=== PATIENT | female | born 1960 | race Hispanic/Latino ===

== ENCOUNTER 2017-06-25 08:54 | Emergency (ER) | payer BC, SELFPAY ==
[2017-06-25 09:52] LABS: Urine Blood TRACE (NEG); Urine Glucose TRACE (NEG); Urine Protein 1+ (NEG)
[2017-06-25 10:02] LABS: Absolute Monocytes 0.4 K/uL (0.1-1.3); Absolute Neutrophil 2.1 K/uL (1.8-8.0); Basophils % 0.3 % (0-1.3); Hematocrit 40.1 % (36.0-45.0); Lymphocytes % 29.5 % (15.3-44.8); MCH 27.9 pg (27.0-35.0); MCV 83.7 fL (80-100); MPV 8.7 fL (7.6-11.3); Monocytes % 11.1 % (3.3-12.3); RBC Red Blood Cell Count 4.79 M/uL (3.86-4.86)
[2017-06-25] MEDS ORDERED: NA CHLORIDE 0.9% 1,000 ML ONE (10:09)
[2017-06-25] MEDS ORDERED: ONDANSETRON 4 MG/2 ML VIAL ONE (10:09)
[2017-06-25 10:10] LABS: Glomerular Filtration Rate > 60 mL/min (>60)
[2017-06-25 10:11] LABS: Potassium 3.4 mEq/L (3.6-5.0)
[2017-06-25 10:17] LABS: Albumin 3.9 g/dL (3.2-5.5); Bilirubin Direct 0.1 mg/dL (0-0.2); Bilirubin Total 0.5 mg/dL (0.3-1.2); Protein, Total 7.4 g/dL (6.0-8.3)
--- NOTE | 2017-06-25 10:31 | RAD REPORT ---
EXAM DESCRIPTION: RAD - Chest Pa And Lat (2 Views) - 06/25/2017 10:03 am CLINICAL HISTORY: Abdominal pain, flank pain COMPARISON: August 2016 TECHNIQUE: PA and lateral views of the chest were obtained. FINDINGS: The lungs are clear. Lung markings are accentuated slightly by shallow inspiration. No tr ue change from comparison. Trachea is midline. Heart size is normal and central vasculature is within normal limits. No pleural effusion or pneumothorax seen. No acute bony finding noted. No aortic a bnormality. IMPRESSION: No acute cardiopulmonary process. No significant interval change.
[2017-06-25 10:35] LABS: Urine Bacteria <20 /HPF (<20); Urine Culture Reflex Order REFLEXED; Urine RBC <5 /HPF (NONE SEEN)
--- NOTE | 2017-06-25 11:06 | RAD REPORT ---
EXAM DESCRIPTION: CT - Abdomen Pelvis W Contrast - 06/25/2017 10:46 am CLINICAL HISTORY: Abdominal pain, right flank pain, decreasing urine output COMPARISON: CT imaging May 2015 TECHNIQUE: Biphasic, helical CT imaging of the abdomen and pelvis was performed following 100 ml non -ionic IV contrast. Oral contrast was given. All CT scans are performed using dose optimization technique as appropriate and may include automated exposure control or mA/KV adjustment according to patient size. FINDINGS: No suspicious findings in the lung bases. The liver, spleen, and pancreas show no suspicious findings. Cholecystectomy clips are present. No bi liary tree dilatation. Symmetric renal function is seen with no hydronephrosis or suspicious renal mass. No pyelonephritis o r acute renal parenchymal process seen. Mostly contracted urinary bladder shows no suspicious finding s. No uterine or ovarian suspicious finding. No dilated bowel loops or bowel wall thickening. The appendix is normal. No free air, free fluid or i nflammatory stranding. No hernia, mass or bulky lymphadenopathy. No adrenal abnormality. No suspicious bony findings. IMPRESSION: Contrast enhanced CT abdomen and pelvis showing no significant or suspicious finding. N o significant change from prior imaging.
--- NOTE | 2017-06-25 12:46 | EDPHYS ---
Physician Documentation [facility] Name: Kieran Dumont Age: 57 yrs Sex: Female : 1960 Arrival Date: 06/25/2017 Time: 08:58 Bed 17 Private MD: ED Physician Oscar Walton HPI: 06/25 10:30 This 57 yrs old Female presents to ER via Ambulatory with complaints of Right pm1 flank pain and nasal congestion. 10:30 The symptoms are located in the right low back. Onset: The symptoms/episode pm1 began/occurred 5 day(s) ago. The pain does not radiate. Associated signs and symptoms: Pertinent positives: dysuria, Pertinent negatives: abdominal pain, chest pain, shortness of breath. Modifying factors: The patient symptoms are alleviated by nothing, the patient symptoms are aggravated by nothing. The patient has experienced similar episodes in the past, a few times. The patient has not recently seen a physician. Patient with 5 days of right flank pain and burning with urination. Patient with no shortness of breath but complains of nasal congestion. Historical: - Allergies: 09:08 tramadol; ss 09:08 HYDROCODONE; ss 09:08 Ciprofloxacin; ss - PMHx: 09:08 Hypertension; Depression; CVA; ss - PSHx: 09:08 Cholecystectomy; Hysterectomy; ss - Immunization history:: Adult Immunizations up to date. - Social history:: Smoking status: Patient/guardian denies using tobacco. ROS: 10:30 Constitutional: Negative for fever, chills, and weight loss, Eyes: Negative for injury, pm1 pain, redness, and discharge, Neck: Negative for injury, pain, and swelling, Cardiovascular: Negative for chest pain, palpitations, and edema. 10:30 Respiratory: Negative for shortness of breath, cough, wheezing, and pleuritic chest pain, Abdomen/GI: Negative for abdominal pain, nausea, vomiting, diarrhea, and constipation. 10:30 MS/Extremity: Negative for injury and deformity, Skin: Negative for injury, rash, and discoloration, Neuro: Negative for headache, weakness, numbness, tingling, and seizure. 10:30 ENT: Positive for sinus congestion, sinus pain, Negative for ear pain, sore throat. 10:30 Back: Positive for flank pain, on the right. 10:30 : Positive for burning with urination. Exam: 10:30 Constitutional: This is a well developed, well nourished patient who is awake, alert, pm1 and in no acute distress. Head/Face: Normocephalic, atraumatic. Eyes: Pupils equal round and reactive to light, extra-ocular motions intact. Lids and lashes normal. Conjunctiva and sclera are non-icteric and not injected. Cornea within normal limits. Periorbital areas with no swelling, redness, or edema. ENT: Nares patent. No nasal discharge, no septal abnormalities noted. Tympanic membranes are normal and external auditory canals are clear. Oropharynx with no redness, swelling, or masses, exudates, or evidence of obstruction, uvula midline. Mucous membranes moist. Neck: Trachea midline, no thyromegaly or masses palpated, and no cervical lymphadenopathy. Supple, full range of motion without nuchal rigidity, or vertebral point tenderness. No Meningismus. Chest/axilla: Normal chest wall appearance and motion. Nontender with no deformity. No lesions are appreciated. Cardiovascular: Regular rate and rhythm with a normal S1 and S2. No gallops, murmurs, or rubs. Normal PMI, no JVD. No pulse deficits. Respiratory: Lungs have equal breath sounds bilaterally, clear to auscultation and percussion. No rales, rhonchi or wheezes noted. No increased work of breathing, no retractions or nasal flaring. Abdomen/GI: Soft, non-tender, with normal bowel sounds. No distension or tympany. No guarding or rebound. No evidence of tenderness throughout. 10:30 Back: normal spinal alignment noted, vertebral tenderness, is not appreciated. 10:30 Neuro: Orientation: is normal, Mentation: is normal, Motor: is normal, moves all fours, pm1 Sensation: is normal, no obvious gross deficits. Vital Signs: 09:08 BP 110 / 57; Pulse 118; Resp 22; Pulse Ox 96% on R/A; Weight 104.33 kg; Height 5 ft. 7 ss in. (170.18 cm); Pain 5/10; 09:08 Temp 99.0(TE); ss 10:56 BP 111 / 69; Pulse 92; Resp 18; Pulse Ox 97% on 2 lpm NC; hj 09:08 Body Mass Index 36.02 (104.33 kg, 170.18 cm) ss MDM: 09:29 Patient medically screened. pm1 12:44 Data reviewed: vital signs. Data interpreted: Pulse oximetry: on room air is 97 %. pm1 Interpretation: normal. Counseling: I had a detailed discussion with the patient and/or guardian regarding: the historical points, exam findings, and any diagnostic results supporting the discharge/admit diagnosis, lab results, radiology results, the need for outpatient follow up, to return to the emergency department if symptoms worsen or persist or if there are any questions or concerns that arise at home. 06/25 09:39 Order name: Creatinine for Radiology; Complete Time: 11:14 pm06/25 09:39 Order name: Basic Metabolic Panel; Complete Time: 11:14 pm06/25 09:39 Order name: CBC with Diff; Complete Time: 11:14 pm06/25 09:39 Order name: Hepatic Function; Complete Time: 11:14 pm06/25 09:39 Order name: Lipase; Complete Time: 11:14 pm06/25 09:39 Order name: Urine Microscopic Only; Complete Time: 11:14 pm06/25 09:39 Order name: Chest Pa And Lat (2 Views) XRAY; Complete Time: 11:14 pm06/25 09:39 Order name: CT Abd/Pelvis - W/Contrast; Complete Time: 11:14 pm06/25 09:39 Order name: Urine Dipstick--Ancillary (enter results); Complete Time: 09:56 ag 06/25 09:39 Order name: Urine --Ancillary (enter results); Complete Time: 09:56 ag 06/25 10:37 Order name: Urine Culture EDMS 06/25 09:39 Order name: Urine Test (obtain specimen); Complete Time: 09:41 pm06/25 09:39 Order name: IV Saline Lock; Complete Time: 09:54 pm06/25 09:39 Order name: Labs collected and sent; Complete Time: 09:54 pm06/25 09:39 Order name: Urine Dipstick-Ancillary (obtain specimen); Complete Time: 09:41 pm1 Administered Medications: 09:39 Drug: NS 0.9% 1000 ml Route: IV; Rate: 1000 ml; Site: right antecubital; hj 13:13 Follow up: IV Status: Completed infusion hj 09:39 Drug: Zofran 4 mg Route: IVP; Site: right antecubital; hj 11:00 Follow up: Response: No adverse reaction; Nausea is decreased hj 12:26 Drug: Rocephin 1 grams Route: IV; Rate: calculated rate; Site: right antecubital; hj 13:13 Follow up: IV Status: Completed infusion Disposition: 13:29 Co-signature as Attending Physician, Oscar Walton MD I agree with the assessment and kdr plan of care. Disposition: 06/25/17 12:45 Discharged to Home. Impression: Urinary tract infection, site not specified, Acute upper respiratory infection, unspecified. - Condition is Stable. - Discharge Instructions: Upper Respiratory Infection, Adult, Urinary Tract Infection. - Prescriptions for Bactrim DS 800- 160 mg Oral Tablet - take 1 tablet by ORAL route every 12 hours for 10 days; 20 tablet. Pyridium 200 mg Oral Tablet - take 1 tablet by ORAL route every 8 hours for 3 days; 9 tablet. - Medication Reconciliation Form, Thank You Letter, Antibiotic Education form. - Follow up: Emergency Department; When: As needed; Reason: Worsening of condition. Follow up: Private Physician; When: 2 - 3 days; Reason: Recheck today's complaints, Continuance of care, Re-evaluation by your physician. - Problem is new. - Symptoms have improved. Signatures: Dispatcher [employer] Oscar Rodriguez MD MD kdr Smirch, Shelby, RN RN Gerber Espinoza RN RN hj Marinas, Patrick, TRACE FAST FOOD SHIFT SUPERVISOR pm1
--- NOTE | 2017-06-25 12:46 | ER ---
Nurse's Notes [facility] Name: Kieran Dumont Age: 57 yrs Sex: Female : 1960 Arrival Date: 06/25/2017 Time: 08:58 Bed 17 Private MD: Diagnosis: Acute upper respiratory infection, unspecified;Urinary tract infection, site not specified Presentation: 06/25 09:05 Presenting complaint: Patient states: R flank pain and not urinating as much x 5 days. ss Pt also c/o nasal congestion and cough x 5 days as well. Transition of care: patient was not received from another setting of care. Onset of symptoms is unknown. Care prior to arrival: None. 09:05 Method Of Arrival: Ambulatory ss 09:05 Acuity: ELVIRA 3 ss Historical: - Allergies: 09:08 tramadol; ss 09:08 HYDROCODONE; ss 09:08 Ciprofloxacin; ss - PMHx: 09:08 Hypertension; Depression; CVA; ss - PSHx: 09:08 Cholecystectomy; Hysterectomy; ss - Immunization history:: Adult Immunizations up to date. - Social history:: Smoking status: Patient/guardian denies using tobacco. Screenin:24 Abuse screen: Denies threats or abuse. Denies injuries from another. Nutritional hj screening: No deficits noted. Tuberculosis screening: No symptoms or risk factors identified. Fall Risk None identified. Assessment: 09:23 General: Appears in no apparent distress. uncomfortable, Behavior is calm, cooperative, hj appropriate for age. Pain: Complains of pain in posterior aspect of right lateral abdomen and anterior aspect of right lateral abdomen. Neuro: Level of Consciousness is awake, alert, obeys commands, Oriented to person, place, time, situation, Appropriate for age. Cardiovascular: Capillary refill < 3 seconds Patient's skin is warm and dry. Respiratory: Airway is patent Respiratory effort is even, unlabored, Respiratory pattern is regular, symmetrical. GI: No signs and/or symptoms were reported involving the gastrointestinal system. :. : Reports inability to void. EENT: No signs and/or symptoms were reported regarding the EENT system. Derm: No signs and/or symptoms reported regarding the dermatologic system. Musculoskeletal: No signs and/or symptoms reported regarding the musculoskeletal system. 09:54 Reassessment: complaints of nasal congestion. hj 10:56 Reassessment: Patient and/or family updated on plan of care and expected duration. Pain hj level reassessed. Patient is alert, oriented x 3, equal unlabored respirations, skin warm/dry/pink. awaiting results;. 11:45 Reassessment: Patient and/or family updated on plan of care and expected duration. Pain hj level reassessed. Patient is alert, oriented x 3, equal unlabored respirations, skin warm/dry/pink. Patient states feeling better. 12:45 Reassessment: Patient and/or family updated on plan of care and expected duration. Pain hj level reassessed. Patient is alert, oriented x 3, equal unlabored respirations, skin warm/dry/pink. Patient states feeling better. Vital Signs: 09:08 BP 110 / 57; Pulse 118; Resp 22; Pulse Ox 96% on R/A; Weight 104.33 kg; Height 5 ft. 7 ss in. (170.18 cm); Pain 5/10; 09:08 Temp 99.0(TE); ss 10:56 BP 111 / 69; Pulse 92; Resp 18; Pulse Ox 97% on 2 lpm NC; hj 09:08 Body Mass Index 36.02 (104.33 kg, 170.18 cm) ED Course: 08:58 Patient arrived in ED. mr 09:07 Triage completed. ss 09:10 Gerber Espinoza, RN is Primary Nurse. hj 09:25 Arm band placed on right wrist. hj 09:25 Patient has correct armband on for positive identification. Placed in gown. Bed in low hj position. Call light in reach. Side rails up X 1. 09:26 Rian Mares NP is PHCP. pm1 09:26 Oscar Walton MD is Attending Physician. pm1 09:39 Initial lab(s) drawn, by nm, sent to lab. Urine collected:. Inserted saline lock: 22 hj gauge in right antecubital area, using aseptic technique. Blood collected. 10:03 X-ray completed. Patient tolerated procedure well. Patient moved back from radiology. 1 10:03 Chest Pa And Lat (2 Views) XRAY In Process Unspecified. EDMS 10:46 CT Abd/Pelvis - W/Contrast In Process Unspecified. EDMS 13:12 No provider procedures requiring assistance completed. IV discontinued, intact, hj bleeding controlled, No redness/swelling at site. Pressure dressing applied. Administered Medications: 09:39 Drug: NS 0.9% 1000 ml Route: IV; Rate: 1000 ml; Site: right antecubital; 13:13 Follow up: IV Status: Completed infusion 09:39 Drug: Zofran 4 mg Route: IVP; Site: right antecubital; hj 11:00 Follow up: Response: No adverse reaction; Nausea is decreased hj 12:26 Drug: Rocephin 1 grams Route: IV; Rate: calculated rate; Site: right antecubital; hj 13:13 Follow up: IV Status: Completed infusion Outcome: 12:45 Discharge ordered by MD. pm1 13:12 Discharged to home ambulatory. 13:12 Condition: stable 13:12 Discharge instructions given to patient, Instructed on discharge instructions, follow up and referral plans. medication usage, Demonstrated understanding of instructions, follow-up care, medications, Prescriptions given X 2. 13:12 Patient left the ED. Signatures: Dispatcher [employer] Flaca SetheyRose [facility] Alissa Woods, MARLO RN Gerber Espinzoa RN RN Rian Mares, TRACE AUTOMOTIVE EXHAUST EMISSIONS TECHNICIAN pm1
[2017-06-25] MEDS ORDERED: CEFTRIAXONE/SWI 1gm 1 GM/10 ML SYR ONE (13:00)
[2017-06-25 13:17] VITALS: TEMP 99
[2017-06-25 13:19] VITALS: BP 111/69; O2SAT 97
== END 2017-06-25 13:12 | disposition home or self-care (01) ==
LOC: ER 08:54
DX: N39.0 Urinary tract infection, site not specified (principal); J06.9 Acute upper respiratory infection, unspecified; I10 Essential (primary) hypertension; Z88.3 Allergy status to other anti-infective agents; Z88.5 Allergy status to narcotic agent
CPT/HCPCS: 36415; 71046; 74177; 80048; 80076; 81003; 81015; 81025; 83690; 85025; 87086; 87088; 96361; 96365; 96375; 99284; J0696; J2405; J7030; Q9967

== ENCOUNTER 2017-08-20 08:08 | Emergency (ER) | payer OTHER, SELFPAY ==
[2017-08-20 09:18] LABS: Absolute Lymphocytes (CBC) 1.2 K/uL (0.7-4.9); Absolute Monocytes 0.3 K/uL (0.1-1.3); Basophils % 0.5 % (0-1.3); Hematocrit 41.5 % (36.0-45.0); Lymphocytes % 25.7 % (15.3-44.8); MCV 83.1 fL (80-100); MPV 9.4 fL (7.6-11.3); Monocytes % 6.5 % (3.3-12.3); Potassium 3.6 mEq/L (3.6-5.0); RBC Red Blood Cell Count 4.99 M/uL (3.86-4.86)
[2017-08-20 09:58] LABS: Thyroid Stimulating Hormone 1.74 uIU/mL (0.34-5.60)
--- NOTE | 2017-08-20 10:33 | RAD REPORT ---
EXAM DESCRIPTION: CT - Chest For Pe Angio - 08/20/2017 10:24 am CLINICAL HISTORY: Chest pain. COMPARISON: None. TECHNIQUE: CT angiogram of the pulmonary arteries was performed with MIP. All CT scans are performed using dose optimization technique as appropriate and may include automated exposure control or mA/KV adjustment according to patient size. FINDINGS: No evidence of pulmonary thromboembolism. No acute aortic finding demonstrated. The lungs are clear. No significant pericardial or pleural fluid. No concerning bony finding. IMPRESSION: No evidence of pulmonary thromboembolism. No acute lung findings.
--- NOTE | 2017-08-20 10:37 | RAD REPORT ---
EXAM DESCRIPTION: RAD - Chest Pa And Lat (2 Views) - 08/20/2017 9:09 am CLINICAL HISTORY: Dyspnea COMPARISON: May 2017 TECHNIQUE: PA and lateral views of the chest were obtained. FINDINGS: The lungs are clear. Heart size is normal and central vasculature is within normal limit s. No pleural effusion or pneumothorax seen. No acute bony finding noted. No aortic abnormality. IMPRESSION: No acute cardiopulmonary process. No significant interval change.
--- NOTE | 2017-08-20 10:43 | ER ---
Nurse's Notes [facility] Name: Kieran Dumont Age: 57 yrs Sex: Female : 1960 Arrival Date: 08/20/2017 Time: 08:14 Bed 20 Private MD: Diagnosis: Chills (without fever) Presentation: 08/20 08:34 Presenting complaint: Patient states: felt that her left arm was cold, like ice, X 1 iw week, then last night she felt cold throughout her whole body, also has felt fatigue for a couple years, denies pain. 08:34 Method Of Arrival: Ambulatory iw 09:14 Transition of care: patient was not received from another setting of care. Onset of iw symptoms was August 20, 2017. Risk Assessment: Do you want to hurt yourself or someone else? Patient reports no desire to harm self or others. Initial Sepsis Screen: Does the patient meet any 2 criteria? No. Patient's initial sepsis screen is negative. Does the patient have a suspected source of infection? No. Patient's initial sepsis screen is negative. Care prior to arrival: None. 09:14 Acuity: ELVIRA 3 iw Historical: - Allergies: 08:38 Ciprofloxacin; iw 08:38 HYDROCODONE; iw 08:38 tramadol; iw 08:38 Bactrim; iw - Home Meds: 08:38 aspirin 81 mg Oral TbEC 1 tab once daily [Active]; citalopram 20 mg tab 1 tab once iw daily [Active]; - PMHx: 08:38 CVA; Depression; Hypertension; iw - PSHx: 08:38 Cholecystectomy; Hysterectomy; iw - Immunization history:: Adult Immunizations unknown. - Social history:: Smoking status: Patient/guardian denies using tobacco. - Ebola Screening: : Patient negative for fever greater than or equal to 101.5 degrees Fahrenheit, and additional compatible Ebola Virus Disease symptoms Patient denies exposure to infectious person Patient denies travel to an Ebola-affected area in the 21 days before illness onset No symptoms or risks identified at this time. Screenin:47 Abuse screen: Denies threats or abuse. Nutritional screening: No deficits noted. em Tuberculosis screening: No symptoms or risk factors identified. Fall Risk None identified. Assessment: 08:45 General: Reports chills for Denies fever. General: Appears in no apparent distress. em uncomfortable, Behavior is cooperative, anxious. Pain: Denies pain. Neuro: Level of Consciousness is awake, alert, obeys commands, Oriented to person, place, time, situation, Speech is normal. Cardiovascular: Capillary refill < 3 seconds Patient's skin is warm and dry. Respiratory: Airway is patent Respiratory effort is even, unlabored, Respiratory pattern is regular, symmetrical. GI: Abdomen is round non-distended. : No signs and/or symptoms were reported regarding the genitourinary system. EENT: No signs and/or symptoms were reported regarding the EENT system. Derm: Skin is intact, Skin is pink, warm \T\ dry. Musculoskeletal: Range of motion: intact in all extremities. 09:00 Reassessment: Patient appears in no apparent distress at this time. I agree with above iw assessment by Homero Rodriguez LVN. 09:50 Reassessment: Patient appears in no apparent distress at this time. Patient and/or em family updated on plan of care and expected duration. Pain level reassessed. Patient is alert, oriented x 3, equal unlabored respirations, skin warm/dry/pink. still feels cold, warm blanket given. 10:50 Reassessment: Patient appears in no apparent distress at this time. Patient and/or em family updated on plan of care and expected duration. Pain level reassessed. Patient is alert, oriented x 3, equal unlabored respirations, skin warm/dry/pink. Patient states symptoms have not improved. Vital Signs: 08:38 BP 130 / 79; Pulse 90; Resp 18 S; Temp 97.2; Pulse Ox 98% on R/A; iw 09:50 BP 104 / 57; Pulse 70; Resp 16; Pulse Ox 97% on R/A; Pain 0/10; em 10:50 BP 111 / 64; Pulse 68; Resp 18; Pulse Ox 99% on R/A; em ED Course: 08:14 Patient arrived in ED. mr 08:25 Arm band placed on. em 08:26 Zenaida Clinton FNP-C is PHCP. kb 08:26 Pedrito Trujilol MD is Attending Physician. kb 08:34 Homero Rodriguez LVN is Primary Nurse. em 08:40 Initial lab(s) drawn, by me, sent to lab. Flu and/or RSV swab sent to lab. Inserted em saline lock: 20 gauge in right antecubital area, using aseptic technique. Blood collected. 08:47 Patient has correct armband on for positive identification. Bed in low position. Call em light in reach. Side rails up X 1. 08:48 No provider procedures requiring assistance completed. em 09:08 X-ray completed. Patient tolerated procedure well. Patient moved back from radiology. [facility] 09:09 Chest Pa And Lat (2 Views) XRAY In Process Unspecified. EDMS 09:14 Triage completed. iw 10:19 CT completed. Patient tolerated procedure well. Patient moved to CT via wheelchair. Patient moved back from CT. 10:24 CT Chest For PE Angio In Process Unspecified. EDMS 11:13 IV discontinued, intact, bleeding controlled, No redness/swelling at site. Pressure em dressing applied. Administered Medications: No medications were administered Outcome: 10:42 Discharge ordered by MD. kb 11:14 Discharged to home ambulatory. em 11:14 Condition: good 11:14 Discharge instructions given to patient, Instructed on discharge instructions, follow up and referral plans. Demonstrated understanding of instructions, follow-up care. 11:15 Patient left the ED. em Signatures: Dispatcher [employer] EDMS Zenaida Clinton, GUIDE DOG MOBILITY INSTRUCTOR-C GUIDE DOG MOBILITY INSTRUCTOR-Ckb Flaca Keane mr JosephRose 1 Tayler Nicholson Edgar, COOLING PIPE INSPECTOR COOLING PIPE INSPECTOR em Brittny Luu, RN RN iw Corrections: (The following items were deleted from the chart) 08:43 08:38 BP 130 / 79; Pulse 90bpm; Resp 18bpm; Spontaneous; Pulse Ox 98% RA; Temp 96.2F; iwiw 09:27 08:25 General: Appears in no apparent distress. uncomfortable, Behavior is cooperative, em anxious, em : 08:25 Pain: Denies pain. em em : 08:25 Neuro: Level of Consciousness is awake, alert, obeys commands, Oriented to em person, place, time, situation, Speech is normal, em : 08:25 Cardiovascular: Capillary refill < 3 seconds Patient's skin is warm and dry. em em : 08:25 Respiratory: Airway is patent Respiratory effort is even, unlabored, Respiratory em pattern is regular, symmetrical, em 08:25 GI: Abdomen is round non-distended, em em : : No signs and/or symptoms were reported regarding the genitourinary system. em em : EENT: No signs and/or symptoms were reported regarding the EENT system. em em : Derm: Skin is intact, Skin is pink, warm \T\ dry. em em : Musculoskeletal: Range of motion: intact in all extremities, em em : General: Reports chills for Denies fever, em em
--- NOTE | 2017-08-20 10:43 | EDPHYS ---
Physician Documentation [facility] Name: Kieran Dumont Age: 57 yrs Sex: Female : 1960 Arrival Date: 08/20/2017 Time: 08:14 Bed 20 Private MD: ED Physician Pedrito Trujillo HPI: 08/20 08:32 This 57 yrs old Female presents to ER via Unassigned with complaints of Chills.kb 08:32 Pt reports a cold feeling to left arm for 1 week, last night felt the cold to entire kb body. States she has fatigue, shortness of breath, and rapid heart beat intermittently "all the time/for years." States she has been seen for that by her PCP (Av). States "I came for the cold feeling.". Onset: The symptoms/episode began/occurred 1 week(s) ago, and became worse last night. Severity of symptoms: At their worst the symptoms were moderate in the emergency department the symptoms are unchanged. The patient has not experienced similar symptoms in the past. The patient has not recently seen a physician. Historical: - Allergies: 08:38 Ciprofloxacin; iw 08:38 HYDROCODONE; iw 08:38 tramadol; iw 08:38 Bactrim; iw - Home Meds: 08:38 aspirin 81 mg Oral TbEC 1 tab once daily [Active]; citalopram 20 mg tab 1 tab once iw daily [Active]; - PMHx: 08:38 CVA; Depression; Hypertension; iw - PSHx: 08:38 Cholecystectomy; Hysterectomy; iw - Immunization history:: Adult Immunizations unknown. - Social history:: Smoking status: Patient/guardian denies using tobacco. - Ebola Screening: : Patient negative for fever greater than or equal to 101.5 degrees Fahrenheit, and additional compatible Ebola Virus Disease symptoms Patient denies exposure to infectious person Patient denies travel to an Ebola-affected area in the 21 days before illness onset No symptoms or risks identified at this time. ROS: 08:36 ENT: Negative for injury, pain, and discharge, Neck: Negative for injury, pain, and kb swelling, Cardiovascular: Negative for chest pain, palpitations, and edema, Respiratory: Negative for shortness of breath, cough, wheezing, and pleuritic chest pain, Abdomen/GI: Negative for abdominal pain, nausea, vomiting, diarrhea, and constipation, Back: Negative for injury and pain, : Negative for injury, bleeding, discharge, and swelling, MS/Extremity: Negative for injury and deformity, Skin: Negative for injury, rash, and discoloration, Neuro: Negative for headache, weakness, numbness, tingling, and seizure. 08:36 Constitutional: Positive for chills, fatigue, Negative for body aches, fever, malaise, poor PO intake, weight loss. Exam: 08:36 Constitutional: This is a well developed, well nourished patient who is awake, alert, kb and in no acute distress. Head/Face: Normocephalic, atraumatic. ENT: Nares patent. No nasal discharge, no septal abnormalities noted. Tympanic membranes are normal and external auditory canals are clear. Oropharynx with no redness, swelling, or masses, exudates, or evidence of obstruction, uvula midline. Mucous membranes moist. Neck: Trachea midline, no thyromegaly or masses palpated, and no cervical lymphadenopathy. Supple, full range of motion without nuchal rigidity, or vertebral point tenderness. No Meningismus. Chest/axilla: Normal chest wall appearance and motion. Nontender with no deformity. No lesions are appreciated. Cardiovascular: Regular rate and rhythm with a normal S1 and S2. No gallops, murmurs, or rubs. Normal PMI, no JVD. No pulse deficits. Respiratory: Lungs have equal breath sounds bilaterally, clear to auscultation and percussion. No rales, rhonchi or wheezes noted. No increased work of breathing, no retractions or nasal flaring. Abdomen/GI: Soft, non-tender, with normal bowel sounds. No distension or tympany. No guarding or rebound. No evidence of tenderness throughout. Skin: Warm, dry with normal turgor. Normal color with no rashes, no lesions, and no evidence of cellulitis. MS/ Extremity: Pulses equal, no cyanosis. Neurovascular intact. Full, normal range of motion. Neuro: Awake and alert, GCS 15, oriented to person, place, time, and situation. Cranial nerves II-XII grossly intact. Motor strength 5/5 in all extremities. Sensory grossly intact. Cerebellar exam normal. Normal gait. Vital Signs: 08:38 BP 130 / 79; Pulse 90; Resp 18 S; Temp 97.2; Pulse Ox 98% on R/A; iw 09:50 BP 104 / 57; Pulse 70; Resp 16; Pulse Ox 97% on R/A; Pain 0/10; em 10:50 BP 111 / 64; Pulse 68; Resp 18; Pulse Ox 99% on R/A; em MDM: 08:27 Patient medically screened. kb 08:28 Data reviewed: vital signs, nurses notes. Data interpreted: Pulse oximetry: on room air kb is 98 %. Interpretation: normal. 10:41 Counseling: I had a detailed discussion with the patient and/or guardian regarding: the kb historical points, exam findings, and any diagnostic results supporting the discharge/admit diagnosis, lab results, radiology results, the need for outpatient follow up, a family practitioner, to return to the emergency department if symptoms worsen or persist or if there are any questions or concerns that arise at home. 08/20 08:28 Order name: CBC with Diff; Complete Time: 09:28 kb 08/20 08:28 Order name: Basic Metabolic Panel; Complete Time: 09:58 kb 08/20 08:28 Order name: D-Dimer; Complete Time: 09:45 kb 08/20 08:28 Order name: TSH; Complete Time: 09:58 kb 08/20 08:28 Order name: Troponin (emerg Dept Use Only); Complete Time: 09:28 kb 08/20 08:28 Order name: Flu; Complete Time: 09:28 kb 08/20 08:28 Order name: Chest Pa And Lat (2 Views) XRAY; Complete Time: 10:41 kb 08/20 08:28 Order name: EKG; Complete Time: 08:28 kb 08/20 08:28 Order name: EKG - Nurse/Tech; Complete Time: 09:15 kb 08/20 09:47 Order name: CT Chest For PE Angio; Complete Time: 10:41 kb Administered Medications: No medications were administered Disposition: 08/20/17 10:42 Discharged to Home. Impression: Chills (without fever). - Condition is Stable. - Discharge Instructions: Fatigue. - Medication Reconciliation Form, Thank You Letter, Antibiotic Education, Prescription Opioid Use form. - Follow up: Emergency Department; When: As needed; Reason: Worsening of condition. Follow up: Private Physician; When: 2 - 3 days; Reason: Recheck today's complaints, Continuance of care, Re-evaluation by your physician. Addendum: 08/24/2017 07:22 Co-signature as Attending Physician, Pedrito Trujillo MD I agree with the assessment and c nicole plan of care. Signatures: Dispatcher [employer] TOÑITO Clinton Zenaida, OCEAN FISHING GUIDE-C OCEAN FISHING GUIDE-Ckb Pedrito Trujillo MD MD cha Munoz, Homero, CHECKMAN CHECKMAN em Brittny Luu RN RN iw Corrections: (The following items were deleted from the chart) 08/20 11:15 10:42 08/20/2017 10:42 Discharged to Home. Impression: Chills (without fever). em Condition is Stable. Discharge Instructions: Fatigue. Forms are Medication Reconciliation Form, Thank You Letter, Antibiotic Education, Prescription Opioid Use. Follow up: Emergency Department; When: As needed; Reason: Worsening of condition. Follow up: Private Physician; When: 2 - 3 days; Reason: Recheck today's complaints, Continuance of care, Re-evaluation by your physician. kb
[2017-08-20 11:19] VITALS: TEMP 97.2
[2017-08-20 11:21] VITALS: BP 111/64; O2SAT 99
--- NOTE | 2017-08-20 17:39 | EKG ---
Test Date: 2017-08-20 Test Time: 09:11:11 Patient Service Technician Pst: [place] MEASUREMENT RESULTS: Intervals: Rate: 70 ND: 160 QRSD: 80 QT: 408 QTc: 440 [place]: P: 26 ND: 160 QRS: 32 T: -11 INTERPRETIVE STATEMENTS: Normal sinus rhythm Low voltage QRS T wave abnormality, consider anterior ischemia Abnormal ECG Compared to ECG 09/17/2016 14:34:53 No significant changes Electronically Signed On 08-20-17 17:36:58 CDT by Pratik Du
== END 2017-08-20 11:15 | disposition home or self-care (01) ==
LOC: ER 08:08
DX: R68.83 Chills (without fever) (principal); I10 Essential (primary) hypertension; F32.9 Major depressive disorder, single episode, unspecified; Z86.73 Personal history of transient ischemic attack (TIA), and cerebral infarction without residual deficits; Z88.1 Allergy status to other antibiotic agents; Z88.5 Allergy status to narcotic agent; Z88.6 Allergy status to analgesic agent
CPT/HCPCS: 36415; 71046; 71275; 80048; 84443; 84484; 85025; 85379; 87804; 93005; 99284; Q9967

== ENCOUNTER 2017-10-24 17:32 | Emergency (ER) | payer OTHER ==
--- NOTE | 2017-10-24 19:51 | RAD REPORT ---
EXAM DESCRIPTION: CT - [id number] - 10/24/2017 7:33 pm CLINICAL HISTORY: Numbness and tingling, head and neck injury COMPARISON: None. TECHNIQUE: Axial 5 mm thick images of the head were obtained. Axial 2 mm thick images of the cervic al spine were obtained with sagittal and coronal reconstruction images generated and reviewed. All CT scans are performed using dose optimization technique as appropriate and may include automated exposure control or mA/KV adjustment according to patient size. FINDINGS: No intracranial hemorrhage, mass, edema or acute intracranial finding. No suspicion for ac robinson infarction. No extra-axial fluid collections. Mastoid air cells and paranasal sinuses are clear. No globe or orbit abnormality seen. Cervical bodies are normal in height. C5-6 and C6-7 disc space narrowing with endplate spurring. Ther e is kyphosis of the midcervical spine that is likely positioning artifact. No fracture or acute bony abnormality. No pathologic bone process. Central canal detail is inherently limited. No paraspinal mass or hematoma. IMPRESSION: Negative CT head examination for acute or significant finding. Cervical spine degenerative change with no acute finding.
--- NOTE | 2017-10-24 19:54 | ER ---
Nurse's Notes [facility] Name: Kieran Dumont Age: 57 yrs Sex: Female : 1960 Arrival Date: 10/24/2017 Time: 17:34 Bed 15 Private MD: Diagnosis: Paresthesia of skin Presentation: 10/24 17:38 Presenting complaint: Patient states: Numbness to left posterior calf that started aj yesterday at 1800. Patient denies pain. Reports she had numbness to her head yesterday but it has since resolved. Transition of care: patient was not received from another setting of care. Onset of symptoms was October 23, 2017 at 18:00. Risk Assessment: Do you want to hurt yourself or someone else? Patient reports no desire to harm self or others. Initial Sepsis Screen: Does the patient meet any 2 criteria? No. Patient's initial sepsis screen is negative. Does the patient have a suspected source of infection? No. Patient's initial sepsis screen is negative. Care prior to arrival: None. 17:38 Method Of Arrival: Wheelchair aj 17:38 Acuity: ELVIRA 3 aj Triage Assessment: 17:39 General: Appears in no apparent distress. comfortable, Behavior is calm, cooperative, aj appropriate for age. Pain: Denies pain. Neuro: Level of Consciousness is awake, alert, obeys commands, Oriented to person, place, time, situation, Appropriate for age Numbness in left calf. Neuro: Furnace Feeder are equal bilaterally Moves all extremities. Full function Gait is steady, Speech is normal, Facial symmetry appears normal. Respiratory: Airway is patent Respiratory effort is even, unlabored, Respiratory pattern is regular, symmetrical. Derm: Skin is intact, is healthy with good turgor, Skin is pink, warm \T\ dry. normal. Historical: - Allergies: 17:39 Bactrim; aj 17:39 Ciprofloxacin; aj 17:39 HYDROCODONE; aj 17:39 tramadol; aj - Home Meds: 17:39 aspirin 81 mg Oral TbEC 1 tab once daily [Active]; citalopram 20 mg tab 1 tab once aj daily [Active]; - PMHx: 17:39 CVA; Depression; Hypertension; aj - PSHx: 17:39 Cholecystectomy; Hysterectomy; aj - Immunization history:: Adult Immunizations up to date. - Social history:: Smoking status: Patient/guardian denies using tobacco. - Ebola Screening: : Patient negative for fever greater than or equal to 101.5 degrees Fahrenheit, and additional compatible Ebola Virus Disease symptoms Patient denies exposure to infectious person Patient denies travel to an Ebola-affected area in the 21 days before illness onset No symptoms or risks identified at this time. Screenin:45 Abuse screen: Denies threats or abuse. Nutritional screening: No deficits noted. rb1 Tuberculosis screening: No symptoms or risk factors identified. Fall Risk None identified. Assessment: 17:45 General: Appears in no apparent distress. comfortable, obese, Behavior is calm, rb1 cooperative, Denies fever. Pain: Denies pain. Neuro: Level of Consciousness is awake, alert, obeys commands, Oriented to person, place, time, situation, Reports dizziness, since 1800 last night numbness in left calf. Neuro: Furnace Feeder are equal bilaterally Moves all extremities. Gait is steady, Speech is normal, Facial symmetry appears normal, Pupils are PERRLA. Cardiovascular: Capillary refill < 3 seconds is brisk in bilateral toes. Respiratory: Airway is patent Respiratory effort is even, unlabored, Respiratory pattern is regular, symmetrical. GI: No signs and/or symptoms were reported involving the gastrointestinal system. : No signs and/or symptoms were reported regarding the genitourinary system. Derm: Skin is dry, Skin is normal, Skin temperature is warm. Musculoskeletal: Range of motion: intact in all extremities. 18:30 Reassessment: Patient appears in no apparent distress at this time. No changes from rb1 previously documented assessment. US at bedside. 19:45 Reassessment: Patient returned from CT, states feeling dizzy and nausea. lp1 19:45 Neuro: Gait is steady. lp1 Vital Signs: 17:39 BP 109 / 83; Pulse 89; Resp 20; Temp 98.6; Pulse Ox 96% on R/A; Weight 109.77 kg; aj Height 5 ft. 7 in. (170.18 cm); 19:30 BP 102 / 68; Pulse 68; Resp 18; Pulse Ox 98% on R/A; lp1 20:00 BP 110 / 74; Pulse 69; Resp 18; Pulse Ox 97% on R/A; lp1 17:39 Body Mass Index 37.90 (109.77 kg, 170.18 cm) ED Course: 17:34 Patient arrived in ED. as 17:39 Triage completed. aj 17:39 Arm band placed on right wrist. Patient placed in an exam room. aj 17:43 Amarilis Chacko, RN is Primary Nurse. rb1 17:45 Sally Chapman FNP-C is PHCP. snw 17:45 Oscar Walton MD is Attending Physician. snw 17:45 Patient has correct armband on for positive identification. Bed in low position. Call rb1 light in reach. Side rails up X 1. ekg monitor tech on. Pulse ox on. NIBP on. 18:55 Report given to MARLO Brunson. rb1 19:29 CT completed. Patient moved to CT via wheelchair. Patient moved back from CT. cw1 19:33 CT Head C Spine In Process Unspecified. EDMS 19:47 Extremity Venous Uni Ltd US In Process Unspecified. EDMS 20:18 No provider procedures requiring assistance completed. Patient did not have IV access lp1 during this emergency room visit. Administered Medications: 20:00 Drug: Meclizine 50 mg Route: PO; lp1 20:20 Follow up: Response: Medication administered at discharge. lp1 20:00 Drug: Zofran 4 mg Route: PO; lp1 20:20 Follow up: Response: Medication administered at discharge. lp1 Outcome: 19:53 Discharge ordered by . snw 20:20 Discharged to home ambulatory, with family. lp1 20:20 Condition: good 20:20 Discharge instructions given to patient, Instructed on discharge instructions, follow up and referral plans. Demonstrated understanding of instructions, follow-up care. 20:21 Patient left the ED. lp1 Signatures: Dispatcher [employer] Lori Guillen, RN RN Sally Rajan FNP-C FNP-Yun Ross Crystal cw1 Nannette Priest, RN RN lp1 Amarilis Chacko, RN RN rb1
--- NOTE | 2017-10-24 19:54 | EDPHYS ---
Physician Documentation [facility] Name: Kieran Dumont Age: 57 yrs Sex: Female : 1960 Arrival Date: 10/24/2017 Time: 17:34 Bed 15 Private MD: ED Physician Oscar Walton HPI: 10/24 18:29 This 57 yrs old Female presents to ER via Wheelchair with complaints of snw Numbness. 18:29 Onset: The symptoms/episode began/occurred suddenly, yesterday, waxing and waning. snw Associated signs and symptoms: Pertinent positives: nausea. The patient has experienced similar episodes in the past. It is unknown whether or not the patient has recently seen a physician. takes one aspirin daily. Historical: - Allergies: 17:39 Bactrim; aj 17:39 Ciprofloxacin; aj 17:39 HYDROCODONE; aj 17:39 tramadol; aj - Home Meds: 17:39 aspirin 81 mg Oral TbEC 1 tab once daily [Active]; citalopram 20 mg tab 1 tab once aj daily [Active]; - PMHx: 17:39 CVA; Depression; Hypertension; aj - PSHx: 17:39 Cholecystectomy; Hysterectomy; aj - Immunization history:: Adult Immunizations up to date. - Social history:: Smoking status: Patient/guardian denies using tobacco. - Ebola Screening: : Patient negative for fever greater than or equal to 101.5 degrees Fahrenheit, and additional compatible Ebola Virus Disease symptoms Patient denies exposure to infectious person Patient denies travel to an Ebola-affected area in the 21 days before illness onset No symptoms or risks identified at this time. ROS: 18:27 Constitutional: Negative for fever, chills, and weight loss, Eyes: Negative for injury, snw pain, redness, and discharge, ENT: Negative for injury, pain, and discharge, Neck: Negative for injury, pain, and swelling, Cardiovascular: Negative for chest pain, palpitations, and edema, Respiratory: Negative for shortness of breath, cough, wheezing, and pleuritic chest pain, Abdomen/GI: Negative for abdominal pain, nausea, vomiting, diarrhea, and constipation, Back: Negative for injury and pain, : Negative for injury, bleeding, discharge, and swelling, MS/Extremity: Negative for injury and deformity, Neuro: Negative for headache, weakness, numbness, tingling, and seizure, Psych: Negative for depression, anxiety, suicide ideation, homicidal ideation, and hallucinations. 18:27 Skin: Positive for numbness to parts of head, resolved since yesterday. Numbness to left posterior calf. Exam: 18:27 Constitutional: This is a well developed, well nourished patient who is awake, alert, snw and in no acute distress. Head/Face: Normocephalic, atraumatic. Eyes: Pupils equal round and reactive to light, extra-ocular motions intact. Lids and lashes normal. Conjunctiva and sclera are non-icteric and not injected. Cornea within normal limits. Periorbital areas with no swelling, redness, or edema. ENT: Nares patent. No nasal discharge, no septal abnormalities noted. Tympanic membranes are normal and external auditory canals are clear. Oropharynx with no redness, swelling, or masses, exudates, or evidence of obstruction, uvula midline. Mucous membranes moist. Neck: Trachea midline, no thyromegaly or masses palpated, and no cervical lymphadenopathy. Supple, full range of motion without nuchal rigidity, or vertebral point tenderness. No Meningismus. Chest/axilla: Normal chest wall appearance and motion. Nontender with no deformity. No lesions are appreciated. Cardiovascular: Regular rate and rhythm with a normal S1 and S2. No gallops, murmurs, or rubs. Normal PMI, no JVD. No pulse deficits. Respiratory: Lungs have equal breath sounds bilaterally, clear to auscultation and percussion. No rales, rhonchi or wheezes noted. No increased work of breathing, no retractions or nasal flaring. Abdomen/GI: Soft, non-tender, with normal bowel sounds. No distension or tympany. No guarding or rebound. No evidence of tenderness throughout. Back: No spinal tenderness. No costovertebral tenderness. Full range of motion. Skin: Warm, dry with normal turgor. Normal color with no rashes, no lesions, and no evidence of cellulitis. MS/ Extremity: Pulses equal, no cyanosis. Neurovascular intact. Full, normal range of motion. Neuro: Awake and alert, GCS 15, oriented to person, place, time, and situation. Cranial nerves II-XII grossly intact. Motor strength 5/5 in all extremities. Sensory grossly intact. Cerebellar exam normal. Normal gait. Vital Signs: 17:39 BP 109 / 83; Pulse 89; Resp 20; Temp 98.6; Pulse Ox 96% on R/A; Weight 109.77 kg; aj Height 5 ft. 7 in. (170.18 cm); 19:30 BP 102 / 68; Pulse 68; Resp 18; Pulse Ox 98% on R/A; lp1 20:00 BP 110 / 74; Pulse 69; Resp 18; Pulse Ox 97% on R/A; lp1 17:39 Body Mass Index 37.90 (109.77 kg, 170.18 cm) aj MDM: 17:45 Patient medically screened. snw 19:54 Data reviewed: vital signs, nurses notes. Data interpreted: Pulse oximetry: on room air snw is 96 %. Interpretation: acceptable. Counseling: I had a detailed discussion with the patient and/or guardian regarding: the historical points, exam findings, and any diagnostic results supporting the discharge/admit diagnosis, the presence of at least one elevated blood pressure reading (>120/80) during this emergency department visit, radiology results, the need for outpatient follow up, to return to the emergency department if symptoms worsen or persist or if there are any questions or concerns that arise at home. Special discussion: Based on the history and exam findings, there is no indication for further emergent testing or inpatient evaluation. 19:56 ED course: pt laughing, talking with Daughter, no distress, vss, US and CT negative. snw Will dc for f/u with PCP. Return precautions. 10/24 18:06 Order name: Extremity Venous Uni Ltd US; Complete Time: 20:01 snw 10/24 19:10 Order name: CT Head C Spine; Complete Time: 19:52 snw Administered Medications: 20:00 Drug: Meclizine 50 mg Route: PO; lp1 20:20 Follow up: Response: Medication administered at discharge. lp1 20:00 Drug: Zofran 4 mg Route: PO; lp1 20:20 Follow up: Response: Medication administered at discharge. lp1 Disposition: 10/24/17 19:53 Discharged to Home. Impression: Paresthesia of skin. - Condition is Stable. - Discharge Instructions: Hypertension, Paresthesia. - Medication Reconciliation Form, Thank You Letter, Antibiotic Education, Prescription Opioid Use form. - Follow up: Private Physician; When: 2 - 3 days; Reason: Recheck today's complaints, Continuance of care, Re-evaluation by your physician. Follow up: Emergency Department; When: As needed; Reason: Worsening of condition. Addendum: 10/28/2017 08:03 Co-signature as Attending Physician, Oscar Walton MD I agree with the assessment and k dr plan of care. Signatures: Dispatcher [employer] EDMS Lori Jean, RN RN Oscar King MD MD [facility] Sally Chapman, GROUTMAN-C GROUTMAN-Csnw Nannette Priest RN RN lp1 Corrections: (The following items were deleted from the chart) 10/24 20:21 19:53 10/24/2017 19:53 Discharged to Home. Impression: Paresthesia of skin. Condition lp1 is Stable. Forms are Medication Reconciliation Form, Thank You Letter, Antibiotic Education, Prescription Opioid Use. Follow up: Private Physician; When: 2 - 3 days; Reason: Recheck today's complaints, Continuance of care, Re-evaluation by your physician. Follow up: Emergency Department; When: As needed; Reason: Worsening of condition. snw
--- NOTE | 2017-10-24 20:00 | RAD REPORT ---
EXAM DESCRIPTION: VAS - Extremity Venous Uni Ltd - 10/24/2017 7:47 pm CLINICAL HISTORY: Left leg pain and swelling COMPARISON: None. TECHNIQUE: Real-time sonographic evaluation of the left lower extremity deep venous system was perfo rmed. FINDINGS: Normal compressibility, flow augmentation, phasic flow and spontaneous flow are identified in the left lower extremity common femoral, superficial femoral, popliteal and posterior tibial vein s. No intraluminal filling defects seen. IMPRESSION: No DVT in the left lower extremity.
[2017-10-24] MEDS ORDERED: MECLIZINE HCL 12.5 MG TAB ONE (20:03)
[2017-10-24] MEDS ORDERED: ONDANSETRON 4 MG (ODT) TAB ONE (20:03)
[2017-10-24 20:26] VITALS: TEMP 98.6
[2017-10-24 20:28] VITALS: BP 110/74; O2SAT 97
== END 2017-10-24 20:21 | disposition home or self-care (01) ==
LOC: ER 17:32
DX: R20.2 Paresthesia of skin (principal); I10 Essential (primary) hypertension; F32.9 Major depressive disorder, single episode, unspecified; Z86.73 Personal history of transient ischemic attack (TIA), and cerebral infarction without residual deficits; Z79.82 Long term (current) use of aspirin; Z88.1 Allergy status to other antibiotic agents; Z88.5 Allergy status to narcotic agent
CPT/HCPCS: 70450; 72125; 93971; 99284

== ENCOUNTER 2017-12-04 16:54 | Emergency (ER) | payer OTHER ==
[2017-12-04] MEDS ORDERED: CYCLOBENZAPRINE 10 MG TAB ONE (17:46)
--- NOTE | 2017-12-04 19:44 | EDPHYS ---
Physician Documentation [facility] Name: Kieran Dumont Age: 57 yrs Sex: Female : 1960 Arrival Date: 12/04/2017 Time: 16:58 Bed 8 Private MD: CHIKIS ROB ED Physician Berry Dunn HPI: 12/04 17:17 This 57 yrs old Female presents to ER via Wheelchair with complaints of Fall jmm Injury - FOOT. 17:17 Onset: The symptoms/episode began/occurred acutely, just prior to arrival. Associated jmm injuries: The patient sustained ankle, right ribs. The patient has not experienced similar symptoms in the past. This is a 57 year old female with no chronic medical conditions that presents to the ED with right sided rib pain and right ankle pain after twisting her ankle. Patient denies pain to the foot. Patient denies other injury. Historical: - Allergies: 17:23 Bactrim; ph 17:23 Ciprofloxacin; ph 17:23 HYDROCODONE; ph 17:23 tramadol; ph - Home Meds: 17:23 aspirin 81 mg Oral TbEC 1 tab once daily [Active]; citalopram 20 mg tab 1 tab once ph daily [Active]; - PMHx: 17:23 CVA; Depression; Hypertension; ph - PSHx: 17:23 Cholecystectomy; Hysterectomy; carpal tunnel; ph - Immunization history:: Adult Immunizations unknown. - Social history:: Smoking status: Patient/guardian denies using tobacco. - Ebola Screening: : No symptoms or risks identified at this time. ROS: 17:17 Constitutional: Negative for fever, chills, and weight loss, Eyes: Negative for injury, jmm pain, redness, and discharge, Cardiovascular: Negative for chest pain, palpitations, and edema, Respiratory: Negative for shortness of breath, cough, wheezing, and pleuritic chest pain, Abdomen/GI: Negative for abdominal pain, nausea, vomiting, diarrhea, and constipation, Back: Negative for injury and pain. 17:17 MS/extremity: Positive for pain. 17:17 All other systems are negative. Exam: 17:17 Head/Face: atraumatic. jmm 17:17 Cardiovascular: Regular rate and rhythm. No edema appreciated Respiratory: Normal respirations, no respiratory distress appreciated Abdomen/GI: Non distended, soft Skin: General appearance color normal 17:17 Constitutional: The patient appears in no acute distress, alert, awake. 17:17 Chest/axilla: right lateral rib pain on palpation. 17:17 Musculoskeletal/extremity: right posterior lateral malleolar tenderness appreciated, no obvious deformity, compartments soft, full dorsalis pedis pulse, NVI. 17:17 Skin: Appearance: Color: normal in color. 17:17 Neuro: Orientation: is normal, Mentation: is normal. 17:17 Psych: Behavior/mood is pleasant, cooperative. Vital Signs: 17:22 BP 120 / 78; Pulse 80; Resp 18; Temp 98.3(TE); Pulse Ox 96% on R/A; ph 18:47 BP 114 / 69; Pulse 70; Resp 16; Pulse Ox 98% on R/A; ph 19:47 BP 99 / 69; Pulse 64; Resp 18; Pulse Ox 99% on R/A; tl2 Procedures: 17:17 Splinting: Splint applied to right leg using Ortho 3D boot, applied by tech. Patient teja tolerated well. MDM: 17:17 Patient medically screened. [facility] 17:17 Data reviewed: vital signs, nurses notes. Counseling: I had a detailed discussion with teja the patient and/or guardian regarding: the historical points, exam findings, and any diagnostic results supporting the discharge/admit diagnosis, radiology results, the need for outpatient follow up, to return to the emergency department if symptoms worsen or persist or if there are any questions or concerns that arise at home. ED course: Patient given ortho boot in ED. IS training given. Patient given strict return precautions. Family understood andagree with the plan of care. . 12/04 17:17 Order name: Ankle Right 3 View XRAY [facility] 12/04 17:30 Order name: Ribs Right XRAY [facility] 12/04 18:49 Order name: INCENTIVE SPIROMETRY [facility] 12/04 18:50 Order name: Posterior Leg Splint; Complete Time: 19:19 [facility] Administered Medications: 17:50 Drug: Flexeril 10 mg Route: PO; ph 19:08 Follow up: Response: No adverse reaction; Pain is decreased ph Disposition: 12/05 10:00 Co-signature as Attending Physician, Berry Dunn MD. rn Disposition: 12/04/17 19:43 Discharged to Home. Impression: Sprain of ankle, Rib Contusion. - Condition is Stable. - Discharge Instructions: Ankle Sprain, Rib Contusion, Incentive Spirometer. - Prescriptions for orphenadrine citrate 100 mg Oral Tablet Sustained Release - take 1 tablet by ORAL route 2 times per day As needed; 20 tablet. - Medication Reconciliation Form, Thank You Letter, Antibiotic Education, Prescription Opioid Use form. - Follow up: Anupam Bustillos MD; When: 2 - 3 days; Reason: Recheck today's complaints, Continuance of care, Re-evaluation by your physician. Signatures: Dispatcher [employer] EDMS Rolf Mathew PA PA jmm Nieto, Roman, MD MD rn Marium Pierce RN RN ph Carole Chapa RN RN tl2 Corrections: (The following items were deleted from the chart) 12/04 19:49 19:43 12/04/2017 19:43 Discharged to Home. Impression: Sprain of ankle; Rib Contusion. tl2 Condition is Stable. Forms are Medication Reconciliation Form, Thank You Letter, Antibiotic Education, Prescription Opioid Use. Follow up: Dr. Anupam Bustillos; When: 2 - 3 days; Reason: Recheck today's complaints, Continuance of care, Re-evaluation by your physician. chica
--- NOTE | 2017-12-04 19:44 | ER ---
Nurse's Notes [facility] Name: Kieran Dumont Age: 57 yrs Sex: Female : 1960 Arrival Date: 12/04/2017 Time: 16:58 Bed 8 Private MD: CHIKIS ROB Diagnosis: Sprain of ankle;Rib Contusion Presentation: 12/04 17:20 Presenting complaint: Patient states: " I tripped and rolled my ankle." Swelling noted ph to R ankle, pedal pulse palpable and strong, pt denies other injury. Transition of care: patient was not received from another setting of care. Onset of symptoms was December 04, 2017. Risk Assessment: Do you want to hurt yourself or someone else? Patient reports no desire to harm self or others. Initial Sepsis Screen: Does the patient meet any 2 criteria? No. Patient's initial sepsis screen is negative. Does the patient have a suspected source of infection? No. Patient's initial sepsis screen is negative. Care prior to arrival: None. 17:20 Method Of Arrival: Wheelchair ph 17:20 Acuity: ELVIRA 4 ph Historical: - Allergies: 17:23 Bactrim; ph 17:23 Ciprofloxacin; ph 17:23 HYDROCODONE; ph 17:23 tramadol; ph - Home Meds: 17:23 aspirin 81 mg Oral TbEC 1 tab once daily [Active]; citalopram 20 mg tab 1 tab once ph daily [Active]; - PMHx: 17:23 CVA; Depression; Hypertension; ph - PSHx: 17:23 Cholecystectomy; Hysterectomy; carpal tunnel; ph - Immunization history:: Adult Immunizations unknown. - Social history:: Smoking status: Patient/guardian denies using tobacco. - Ebola Screening: : No symptoms or risks identified at this time. Screenin:24 Abuse screen: Denies threats or abuse. Denies injuries from another. Nutritional ph screening: No deficits noted. Tuberculosis screening: No symptoms or risk factors identified. Fall Risk None identified. Assessment: 17:23 General: Appears in no apparent distress. comfortable, obese, well groomed, Behavior is ph calm, cooperative, appropriate for age. Pain: Complains of pain in right ankle. Neuro: Level of Consciousness is awake, alert, obeys commands, Oriented to person, place, time, situation. Cardiovascular: Capillary refill is > 3 seconds in bilateral fingers toes Patient's skin is warm and dry. Pulses are palpable in right dorsalis pedis artery and left dorsalis pedis artery. Respiratory: Airway is patent Respiratory effort is even, unlabored. Derm: Skin is intact, is healthy with good turgor, Skin is pink, warm \\T\\ dry. Musculoskeletal: Circulation, motion, and sensation intact. Range of motion: intact in all extremities, Swelling present in right ankle. 18:45 Reassessment: Patient appears in no apparent distress at this time. Patient and/or ph family updated on plan of care and expected duration. Pain level reassessed. Patient is alert, oriented x 3, equal unlabored respirations, skin warm/dry/pink. Pt resting quietly, awaiting radiology results, daughter at bedside. 19:47 Reassessment: Patient appears in no apparent distress at this time. Patient and/or tl2 family updated on plan of care and expected duration. Pain level reassessed. Patient is alert, oriented x 3, equal unlabored respirations, skin warm/dry/pink. Pt verbalized understanding of discharge instructions, need for follow up, prescription usage and use of incentive spirometry. Vital Signs: 17:22 BP 120 / 78; Pulse 80; Resp 18; Temp 98.3(TE); Pulse Ox 96% on R/A; ph 18:47 BP 114 / 69; Pulse 70; Resp 16; Pulse Ox 98% on R/A; ph 19:47 BP 99 / 69; Pulse 64; Resp 18; Pulse Ox 99% on R/A; tl2 ED Course: 16:58 Patient arrived in ED. sb2 16:59 CHIKIS ROB is Private Physician. sb2 17:10 Rolf Mathew PA is PHCP. jmm 17:10 Berry Dunn MD is Attending Physician. jmm 17:20 Marium Pierce, MARLO is Primary Nurse. ph 17:22 Triage completed. ph 17:23 Arm band placed on. ph 17:24 Patient has correct armband on for positive identification. Bed in low position. Call ph light in reach. Side rails up X 1. Pulse ox on. NIBP on. Warm blanket given. Ice pack to injury. 18:07 Ankle Right 3 View XRAY In Process Unspecified. EDMS 18:07 Ribs Right XRAY In Process Unspecified. EDMS 18:46 No provider procedures requiring assistance completed. Patient did not have IV access ph during this emergency room visit. 19:33 Ortho boot applied to rt foot. CMS intact. cc 19:34 INCENTIVE SPIROMETRY Sent. cc 19:43 Anupam Bustillos MD is Referral Physician. [facility] Administered Medications: 17:50 Drug: Flexeril 10 mg Route: PO; ph 19:08 Follow up: Response: No adverse reaction; Pain is decreased ph Outcome: 19:43 Discharge ordered by . [facility] 19:47 Discharged to home via wheelchair, with family. tl2 19:47 Condition: stable 19:47 Discharge instructions given to patient, family, Instructed on discharge instructions, follow up and referral plans. medication usage, incentive spirometry Demonstrated understanding of instructions, follow-up care, medications, Prescriptions given X 1. 19:49 Patient left the ED. tl2 Signatures: Dispatcher [employer] EDMS Rolf Mathew PA PA [facility] Briana Alves cc Marium Pierce RN RN Carole Chapa RN RN tl2 Mikki Zambrano sb2
--- NOTE | 2017-12-04 19:53 | RAD REPORT ---
EXAM DESCRIPTION: RAD - Ankle Right 3 View - 12/04/2017 6:06 pm CLINICAL HISTORY: PAIN COMPARISON: No comparisons FINDINGS: Soft tissue swelling is seen along the lateral malleolus. Slight bony fragmentation distal to the lateral malleolus may be related to previous injury given its well corticated appearance. How ever, a small acute avulsion in this region is difficult to exclude. Prominent plantar calcaneal spur seen.
--- NOTE | 2017-12-04 19:53 | RAD REPORT ---
EXAM DESCRIPTION: RAD - Ribs Right - 12/04/2017 6:12 pm CLINICAL HISTORY: fall Right rib pain COMPARISON: Chest Pa And Lat (2 Views) dated 08/20/2017 FINDINGS: No displaced rib fracture is seen. No pneumothorax is identified. No aggressive rib lesion . Cholecystectomy clips.
[2017-12-04 19:54] VITALS: TEMP 98.3
[2017-12-04 19:57] VITALS: BP 99/69; O2SAT 99
== END 2017-12-04 19:49 | disposition home or self-care (01) ==
LOC: ER 16:54
PROC: 2W3QX1Z Immobilization of Right Lower Leg using Splint (ICD-10-PCS; principal; 2017-12-04)
DX: S93.401A Sprain of unspecified ligament of right ankle, initial encounter (principal); I10 Essential (primary) hypertension; F32.9 Major depressive disorder, single episode, unspecified; W01.0XXA Fall on same level from slipping, tripping and stumbling without subsequent striking against object, initial encounter; X50.1XXA Overexertion from prolonged static or awkward postures, initial encounter; Z88.1 Allergy status to other antibiotic agents; Z88.5 Allergy status to narcotic agent; Z79.82 Long term (current) use of aspirin; Z86.73 Personal history of transient ischemic attack (TIA), and cerebral infarction without residual deficits; S20.219A Contusion of unspecified front wall of thorax, initial encounter
CPT/HCPCS: 99284

== ENCOUNTER 2018-04-21 17:17 | Emergency (ER) | payer OTHER ==
[2018-04-21] MEDS ORDERED: DIPHENHYDRAMINE 50 MG/ML VIAL ONE (18:20)
[2018-04-21] MEDS ORDERED: KETOROLAC 30 MG/ML INJ ONE (18:20)
[2018-04-21] MEDS ORDERED: NA CHLORIDE 0.9% 1,000 ML ONE (18:20)
[2018-04-21] MEDS ORDERED: METOCLOPRAMIDE 10 MG/2mL INJ ONE (18:20)
--- NOTE | 2018-04-21 18:29 | RAD REPORT ---
EXAM DESCRIPTION: CT - Head Brain Wo Cont - 04/21/2018 6:15 pm CLINICAL HISTORY: HEADACHE COMPARISON: Head Brain Wo Cont dated 12/17/2015; CT-STROKE BRAIN W/O CONTRAST dated 04/11/2015 TECHNIQUE: All CT scans are performed using dose optimization technique as appropriate and may inclu de automated exposure control or mA/KV adjustment according to patient size. FINDINGS: No intracranial hemorrhage, hydrocephalus or extra-axial fluid collection.No areas of brai n edema or evidence of midline shift. The paranasal sinuses and mastoids are clear. The calvarium is intact. IMPRESSION: No acute intracranial abnormality.
--- NOTE | 2018-04-21 19:32 | EDPHYS ---
Physician Documentation [facility] Name: Kieran Dumont Age: 57 yrs Sex: Female : 1960 Arrival Date: 04/21/2018 Time: 17:20 Bed 5 Private MD: ED Physician Oscar Walton HPI: 04/21 18:00 This 57 yrs old Female presents to ER via Ambulatory with complaints of pm1 Headache. 18:00 The patient complains of pain to the right eye and right side of head. The patient pm1 describes the headache as aching, constant. Onset: The symptoms/episode began/occurred last night. Associated signs and symptoms: Pertinent negatives: fever, nausea, neck stiffness, paresthesias, Photophobia rash, vision changes, vomiting. Severity of symptoms: in the emergency department the pain is unchanged. Headache History: Denies prior headaches. The patient has not experienced similar symptoms in the past. The patient has not recently seen a physician. right sided headache and behind right eye. Historical: - Allergies: 17:26 Bactrim; tw2 17:26 Ciprofloxacin; tw2 17:26 HYDROCODONE; tw2 17:26 tramadol; tw2 - Home Meds: 17:26 aspirin 81 mg Oral TbEC 1 tab once daily [Active]; citalopram 20 mg tab 1 tab once tw2 daily [Active]; - PMHx: 17:26 CVA; Depression; Hypertension; tw2 - PSHx: 17:26 Cholecystectomy; Hysterectomy; carpal tunnel; tw2 - Immunization history:: Adult Immunizations. - Social history:: Smoking status: Patient/guardian denies using tobacco. - Ebola Screening: : Patient denies travel to an Ebola-affected area in the 21 days before illness onset. ROS: 18:00 Constitutional: Negative for fever, chills, and weight loss, Eyes: Negative for injury, pm1 pain, redness, and discharge, ENT: Negative for injury, pain, and discharge, Neck: Negative for injury, pain, and swelling, Cardiovascular: Negative for chest pain, palpitations, and edema, Respiratory: Negative for shortness of breath, cough, wheezing, and pleuritic chest pain, Abdomen/GI: Negative for abdominal pain, nausea, vomiting, diarrhea, and constipation, Back: Negative for injury and pain, : Negative for injury, bleeding, discharge, and swelling, MS/Extremity: Negative for injury and deformity, Skin: Negative for injury, rash, and discoloration. 18:00 Neuro: Positive for headache, Negative for dizziness, gait disturbance, numbness, tingling. Exam: 18:00 Constitutional: This is a well developed, well nourished patient who is awake, alert, pm1 and in no acute distress. Head/Face: Normocephalic, atraumatic. Eyes: Pupils equal round and reactive to light, extra-ocular motions intact. Lids and lashes normal. Conjunctiva and sclera are non-icteric and not injected. Cornea within normal limits. Periorbital areas with no swelling, redness, or edema. ENT: Nares patent. No nasal discharge, no septal abnormalities noted. Tympanic membranes are normal and external auditory canals are clear. Oropharynx with no redness, swelling, or masses, exudates, or evidence of obstruction, uvula midline. Mucous membranes moist. Neck: Trachea midline, no thyromegaly or masses palpated, and no cervical lymphadenopathy. Supple, full range of motion without nuchal rigidity, or vertebral point tenderness. No Meningismus. Chest/axilla: Normal chest wall appearance and motion. Nontender with no deformity. No lesions are appreciated. Cardiovascular: Regular rate and rhythm with a normal S1 and S2. No gallops, murmurs, or rubs. Normal PMI, no JVD. No pulse deficits. Respiratory: Lungs have equal breath sounds bilaterally, clear to auscultation and percussion. No rales, rhonchi or wheezes noted. No increased work of breathing, no retractions or nasal flaring. Abdomen/GI: Soft, non-tender, with normal bowel sounds. No distension or tympany. No guarding or rebound. No evidence of tenderness throughout. Back: No spinal tenderness. No costovertebral tenderness. Full range of motion. Skin: Warm, dry with normal turgor. Normal color with no rashes, no lesions, and no evidence of cellulitis. MS/ Extremity: Pulses equal, no cyanosis. Neurovascular intact. Full, normal range of motion. 18:00 Neuro: Orientation: is normal, Cranial nerves: CN II- XII are normal as tested, Cerebellar function: normal finger to nose testing, Motor: is normal, moves all fours, Sensation: is normal, no obvious gross deficits, Gait: is steady, at a normal pace, without difficulty. Vital Signs: 17:24 BP 119 / 86; Pulse 86; Resp 18; Temp 98.9(O); Pulse Ox 100% on R/A; Weight 108.86 kg tw2 (R); Height 5 ft. 7 in. (170.18 cm); Pain 5/10; 19:51 BP 109 / 80; Pulse 80; Resp 18; Pulse Ox 99% on R/A; ea 17:24 Body Mass Index 37.59 (108.86 kg, 170.18 cm) tw2 17:24 but when the sharp pains comes its a 10 tw2 MDM: 17:39 Patient medically screened. pm1 19:31 Data reviewed: vital signs. Data interpreted: Pulse oximetry: on room air is 100 %. pm1 Interpretation: normal. Counseling: I had a detailed discussion with the patient and/or guardian regarding: the historical points, exam findings, and any diagnostic results supporting the discharge/admit diagnosis, radiology results, the need for outpatient follow up, to return to the emergency department if symptoms worsen or persist or if there are any questions or concerns that arise at home. 04/21 17:42 Order name: CT Head Brain wo Cont; Complete Time: 18:52 pm1 Administered Medications: 18:10 Drug: Reglan 10 mg Route: IVP; Site: right antecubital; bp 19:15 Follow up: Response: No adverse reaction; Marked relief of symptoms ea 18:10 Drug: Benadryl 12.5 mg Route: IVP; Site: right antecubital; bp 19:53 Follow up: Response: No adverse reaction; Marked relief of symptoms ea 18:10 Drug: TORadol 30 mg Route: IVP; Site: right antecubital; bp 19:53 Follow up: Response: No adverse reaction; Marked relief of symptoms ea 18:10 Drug: NS 0.9% 1000 ml Route: IV; Rate: 1000 ml; Site: right antecubital; bp 19:53 Follow up: Response: No adverse reaction; IV Status: Completed infusion; IV Intake: ea 1000ml Disposition: 04/21/18 19:32 Discharged to Home. Impression: Headache. - Condition is Stable. - Discharge Instructions: General Headache Without Cause, Migraine Headache. - Medication Reconciliation Form, Thank You Letter, Antibiotic Education, Prescription Opioid Use form. - Follow up: Emergency Department; When: As needed; Reason: Worsening of condition. Follow up: Private Physician; When: 2 - 3 days; Reason: Recheck today's complaints, Continuance of care, Re-evaluation by your physician. - Problem is new. - Symptoms have improved. Addendum: 04/28/2018 08:55 Co-signature as Attending Physician, Oscar Walton MD I agree with the assessment and k dr plan of care. Signatures: Dispatcher [employer] EDNE Oscar Walton MD MD [facility] Rian Mares NP VISITOR SERVICES ASSISTANT pm1 Tiffanie Naidu RN RN tw2 Yolanda Odonnell, RN RN Dariel Nunn RN RN bp Corrections: (The following items were deleted from the chart) 04/21 19:54 19:32 04/21/2018 19:32 Discharged to Home. Impression: Headache. Condition is Stable. ea Forms are Medication Reconciliation Form, Thank You Letter, Antibiotic Education, Prescription Opioid Use. Follow up: Emergency Department; When: As needed; Reason: Worsening of condition. Follow up: Private Physician; When: 2 - 3 days; Reason: Recheck today's complaints, Continuance of care, Re-evaluation by your physician. Problem is new. Symptoms have improved. pm1
--- NOTE | 2018-04-21 19:32 | ER ---
Nurse's Notes [facility] Name: Kieran Dumont Age: 57 yrs Sex: Female : 1960 Arrival Date: 04/21/2018 Time: 17:20 Bed 5 Private MD: Diagnosis: Headache Presentation: 04/21 17:23 Presenting complaint: Patient states: yesterday i had a headache and about 10 am i felt tw2 a ball in my right episcopal area and sharp pains in my eyes and on the top of my head. Transition of care: patient was not received from another setting of care. Onset of symptoms was April 21, 2018. Risk Assessment: Do you want to hurt yourself or someone else? Patient reports no desire to harm self or others. Initial Sepsis Screen: Does the patient meet any 2 criteria? No. Patient's initial sepsis screen is negative. Does the patient have a suspected source of infection? No. Patient's initial sepsis screen is negative. Care prior to arrival: None. 17:23 Method Of Arrival: Ambulatory tw2 17:23 Acuity: ELVIRA 4 tw2 Triage Assessment: 17:26 Headache History: Denies prior headaches. General: Appears in no apparent distress. tw2 Behavior is calm, cooperative, appropriate for age. Pain: Pain currently is 5 out of 10 on a pain scale. Pain began 2-3 days ago. Also complains of no other associated symptoms. Neuro: Level of Consciousness is awake, alert, obeys commands, Oriented to person, place, time, situation. Historical: - Allergies: 17:26 Bactrim; tw2 17:26 Ciprofloxacin; tw2 17:26 HYDROCODONE; tw2 17:26 tramadol; tw2 - Home Meds: 17:26 aspirin 81 mg Oral TbEC 1 tab once daily [Active]; citalopram 20 mg tab 1 tab once tw2 daily [Active]; - PMHx: 17:26 CVA; Depression; Hypertension; tw2 - PSHx: 17:26 Cholecystectomy; Hysterectomy; carpal tunnel; tw2 - Immunization history:: Adult Immunizations. - Social history:: Smoking status: Patient/guardian denies using tobacco. - Ebola Screening: : Patient denies travel to an Ebola-affected area in the 21 days before illness onset. Screenin:10 Abuse screen: Denies threats or abuse. Denies injuries from another. Nutritional bp screening: No deficits noted. Tuberculosis screening: No symptoms or risk factors identified. Fall Risk None identified. Assessment: 18:00 General: Appears in no apparent distress. uncomfortable, Behavior is cooperative, bp appropriate for age, anxious. Pain: Complains of pain in head. Neuro: Level of Consciousness is awake, alert, obeys commands, Oriented to person, place, time, situation, Appropriate for age. Cardiovascular: No deficits noted. Respiratory: Airway is patent Respiratory effort is even, unlabored, Respiratory pattern is regular, symmetrical. GI: No signs and/or symptoms were reported involving the gastrointestinal system. : No signs and/or symptoms were reported regarding the genitourinary system. EENT: No deficits noted. Derm: No deficits noted. Musculoskeletal: Circulation, motion, and sensation intact. Range of motion: intact in all extremities. 19:10 General: Appears in no apparent distress. Behavior is calm, cooperative, appropriate ea for age. Pain: Denies pain. Neuro: Level of Consciousness is awake, alert, obeys commands, Oriented to person, place, time. Cardiovascular: Patient's skin is warm and dry. Respiratory: Airway is patent Respiratory effort is even, unlabored, Respiratory pattern is regular, symmetrical. Derm: Skin is pink, warm \T\ dry. 19:50 Reassessment: Patient and/or family updated on plan of care and expected duration. Pain ea level reassessed. Patient is alert, oriented x 3, equal unlabored respirations, skin warm/dry/pink. Discharge instructions given to patient, verbalized the understanding of instruction Patient states feeling better. Patient states symptoms have improved. Vital Signs: 17:24 BP 119 / 86; Pulse 86; Resp 18; Temp 98.9(O); Pulse Ox 100% on R/A; Weight 108.86 kg tw2 (R); Height 5 ft. 7 in. (170.18 cm); Pain 5/10; 19:51 BP 109 / 80; Pulse 80; Resp 18; Pulse Ox 99% on R/A; ea 17:24 Body Mass Index 37.59 (108.86 kg, 170.18 cm) tw2 17:24 but when the sharp pains comes its a 10 tw2 ED Course: 17:20 Patient arrived in ED. mr 17:24 Triage completed. tw2 17:25 Arm band placed on. tw2 17:33 Dariel Soto, RN is Primary Nurse. bp 17:34 Rian Mares, TRACE is PHCP. pm1 17:34 Oscar Walton MD is Attending Physician. pm1 18:10 Patient has correct armband on for positive identification. Bed in low position. Call bp light in reach. Side rails up X2. 18:10 Inserted saline lock: 20 gauge in right antecubital area, using aseptic technique. bp 18:15 CT completed. Patient tolerated procedure well. Patient moved back from CT. nj 18:17 CT Head Brain wo Cont In Process Unspecified. EDMS 19:52 No provider procedures requiring assistance completed. IV discontinued, intact, ea bleeding controlled, No redness/swelling at site. Pressure dressing applied. Administered Medications: 18:10 Drug: Reglan 10 mg Route: IVP; Site: right antecubital; bp 19:15 Follow up: Response: No adverse reaction; Marked relief of symptoms ea 18:10 Drug: Benadryl 12.5 mg Route: IVP; Site: right antecubital; bp 19:53 Follow up: Response: No adverse reaction; Marked relief of symptoms ea 18:10 Drug: TORadol 30 mg Route: IVP; Site: right antecubital; bp 19:53 Follow up: Response: No adverse reaction; Marked relief of symptoms ea 18:10 Drug: NS 0.9% 1000 ml Route: IV; Rate: 1000 ml; Site: right antecubital; bp 19:53 Follow up: Response: No adverse reaction; IV Status: Completed infusion; IV Intake: ea 1000ml Intake: 19:53 IV: 1000ml; Total: 1000ml. ea Outcome: 19:32 Discharge ordered by . pm1 19:52 Discharged to home ambulatory, with family. ea 19:52 Condition: improved 19:52 Discharge instructions given to patient, Instructed on discharge instructions, follow up and referral plans. Demonstrated understanding of instructions, follow-up care. 19:54 Patient left the ED. ea Signatures: Dispatcher [employer] EDCO Cristine Keane Patrick, DRAW OFF WORKER DRAW OFF WORKER pm1 Tiffanie Naidu RN RN tw2 Kamari Delgadillo Elena RN RN ea Dariel Soto, MARLO RN bp
[2018-04-21 21:17] VITALS: TEMP 98.9
[2018-04-21 21:19] VITALS: BP 109/80; O2SAT 99
== END 2018-04-21 19:54 | disposition home or self-care (01) ==
LOC: ER 17:17
DX: R51 Headache (principal); I10 Essential (primary) hypertension; F32.9 Major depressive disorder, single episode, unspecified; Z79.82 Long term (current) use of aspirin; Z88.1 Allergy status to other antibiotic agents; Z88.5 Allergy status to narcotic agent; Z88.6 Allergy status to analgesic agent; Z86.73 Personal history of transient ischemic attack (TIA), and cerebral infarction without residual deficits
CPT/HCPCS: 70450; 96361; 96374; 96375; 99284; J2765; J7030

== ENCOUNTER 2018-07-07 16:11 | Emergency (ER) | payer OTHER ==
--- NOTE | 2018-07-07 16:59 | RAD REPORT ---
EXAM DESCRIPTION: RAD - Ankle Left 3 View -07/07/2018 4:45 pm CLINICAL HISTORY: Left ankle pain status post injury FINDINGS: Soft tissue swelling 5 millimeter oval bony density lies adjacent to anterior aspect of the distal tibia. I suspect this i s chronic. An acute avulsion fracture although possible is probably less likely. This should be corre lated clinically. No dislocation noted.
--- NOTE | 2018-07-07 17:02 | RAD REPORT ---
EXAM DESCRIPTION: RAD - Lumbar Spine 3 Views - 07/07/2018 4:53 pm CLINICAL HISTORY: Back pain FINDINGS: The alignment of the lumbar spine is satisfactory. No fracture or dislocation is seen. The bones are osteoporotic Marked spondylosis involves L5-S1 consisting disc space narrowing and osteophytes.
[2018-07-07] MEDS ORDERED: KETOROLAC 30 MG/ML INJ ONE (17:44)
--- NOTE | 2018-07-07 17:46 | EDPHYS ---
Physician Documentation [facility] Name: Kieran Dumont Age: 58 yrs Sex: Female : 1960 Arrival Date: 07/07/2018 Time: 16:13 Bed 30 Private MD: ED Physician Berry Dunn HPI: 07/07 17:35 This 58 yrs old Female presents to ER via Wheelchair with complaints of Fall snw Injury. 17:35 Details of fall: The patient fell from a height. snw 17:35 Onset: The symptoms/episode began/occurred suddenly, last night. Associated injuries: snw The patient sustained injury to the low back, left lateral ankle, contusion, decreased range of motion, painful injury, swelling. It is unknown whether or not the patient has had similar symptoms in the past. It is unknown whether or not the patient has recently seen a physician. Historical: - Allergies: 16:16 Bactrim; sv 16:16 Ciprofloxacin; sv 16:16 HYDROCODONE; sv 16:16 tramadol; sv - PMHx: 16:16 CVA; Depression; Hypertension; sv - PSHx: 16:16 Cholecystectomy; Hysterectomy; carpal tunnel; sv - Immunization history:: Flu vaccine status is unknown. - Social history:: Smoking status: unknown. - Ebola Screening: : No symptoms or risks identified at this time. ROS: 17:28 Constitutional: Negative for fever, chills, and weight loss, Eyes: Negative for injury, snw pain, redness, and discharge, ENT: Negative for injury, pain, and discharge, Neck: Negative for injury, pain, and swelling, Cardiovascular: Negative for chest pain, palpitations, and edema, Respiratory: Negative for shortness of breath, cough, wheezing, and pleuritic chest pain, Abdomen/GI: Negative for abdominal pain, nausea, vomiting, diarrhea, and constipation, Back: Negative for injury and pain, : Negative for injury, bleeding, discharge, and swelling, Skin: Negative for injury, rash, and discoloration, Neuro: Negative for headache, weakness, numbness, tingling, and seizure. 17:28 MS/extremity: Positive for injury or acute deformity, pain, swelling, tenderness, of the left lateral ankle. Exam: 17:24 Constitutional: This is a well developed, well nourished patient who is awake, alert, snw and in no acute distress. Head/Face: Normocephalic, atraumatic. Eyes: Pupils equal round and reactive to light, extra-ocular motions intact. Lids and lashes normal. Conjunctiva and sclera are non-icteric and not injected. Cornea within normal limits. Periorbital areas with no swelling, redness, or edema. ENT: Nares patent. No nasal discharge, no septal abnormalities noted. Tympanic membranes are normal and external auditory canals are clear. Oropharynx with no redness, swelling, or masses, exudates, or evidence of obstruction, uvula midline. Mucous membranes moist. Neck: Trachea midline, no thyromegaly or masses palpated, and no cervical lymphadenopathy. Supple, full range of motion without nuchal rigidity, or vertebral point tenderness. No Meningismus. Chest/axilla: Normal chest wall appearance and motion. Nontender with no deformity. No lesions are appreciated. Cardiovascular: Regular rate and rhythm with a normal S1 and S2. No gallops, murmurs, or rubs. Normal PMI, no JVD. No pulse deficits. Respiratory: Lungs have equal breath sounds bilaterally, clear to auscultation and percussion. No rales, rhonchi or wheezes noted. No increased work of breathing, no retractions or nasal flaring. Abdomen/GI: Soft, non-tender, with normal bowel sounds. No distension or tympany. No guarding or rebound. No evidence of tenderness throughout. Skin: Warm, dry with normal turgor. Normal color with no rashes, no lesions, and no evidence of cellulitis. Neuro: Awake and alert, GCS 15, oriented to person, place, time, and situation. Cranial nerves II-XII grossly intact. Motor strength 5/5 in all extremities. Sensory grossly intact. Cerebellar exam normal. Normal gait. Psych: Awake, alert, with orientation to person, place and time. Behavior, mood, and affect are within normal limits. 17:24 Back: CVA tenderness, is absent, vertebral tenderness, is not appreciated. 17:24 Musculoskeletal/extremity: Extremities: noted in the left lateral ankle: contusion, decreased ROM, swelling, tenderness, Circulation is intact in all extremities. Sensation intact. Vital Signs: 16:16 BP 116 / 79; Pulse 79; Resp 18; Temp 98.9; Pulse Ox 97% ; Weight 109.77 kg; Height 5 sv ft. 6 in. (167.64 cm); 17:45 BP 120 / 78; Pulse 80; Resp 18; Pulse Ox 100% on R/A; Pain 2/10; mg2 16:16 Body Mass Index 39.06 (109.77 kg, 167.64 cm) sv MDM: 17:18 Patient medically screened. snw 17:46 Data reviewed: vital signs, nurses notes. Data interpreted: Pulse oximetry: on room air snw is 97 %. Interpretation: normal. Counseling: I had a detailed discussion with the patient and/or guardian regarding: the historical points, exam findings, and any diagnostic results supporting the discharge/admit diagnosis, radiology results, the need for outpatient follow up, to return to the emergency department if symptoms worsen or persist or if there are any questions or concerns that arise at home. Refusal of service: The patient/guardian displays adequate decision making capability and despite a detailed discussion of alternatives, benefits, risks, and consequences refuses: pt refuses walking boot because she feels it is ugly and too heavy. 07/07 16:17 Order name: Ankle Left 3 View XRAY; Complete Time: 17:15 sv 07/07 16:25 Order name: Lumbar Spine (3 Views) XRAY; Complete Time: 17:15 snw 07/07 17:49 Order name: Paresh Wrap; Complete Time: 17:49 mg2 Administered Medications: 17:35 Drug: TORadol 60 mg Route: IM; Site: right gluteus; mg2 17:48 Follow up: Response: No adverse reaction; Medication administered at discharge. mg2 Disposition: 19:06 Co-signature as Attending Physician, Berry Dunn MD. rn Disposition: 07/07/18 17:46 Discharged to Home. Impression: Fall (on) (from) other stairs and steps, Sprain of ankle, Low back pain. - Condition is Stable. - Discharge Instructions: Elastic Bandage and RICE, Ankle Sprain, Back Pain, Adult, Musculoskeletal Pain, Cryotherapy, Heat Therapy. - Prescriptions for Mobic 7.5 mg Oral Tablet - take 1 tablet by ORAL route once daily take with food; 20 tablet. - Medication Reconciliation Form, Thank You Letter, Antibiotic Education, Prescription Opioid Use form. - Follow up: Private Physician; When: 1 - 2 days; Reason: Recheck today's complaints, Continuance of care, Re-evaluation by your physician. Follow up: Emergency Department; When: As needed; Reason: Worsening of condition. Signatures: Dispatcher [employer] Yolis Silvestre RN RN Sally Mena, BAND SAWMILL OPERATOR-C BAND SAWMILL OPERATOR-Csnw Berry Dunn MD MD rn Gardose, Michele, RN RN mg2 Corrections: (The following items were deleted from the chart) 17:48 17:24 Walking boot ordered. snw mg2 18:06 17:46 07/07/2018 17:46 Discharged to Home. Impression: Fall (on) (from) other stairs mg2 and steps; Sprain of ankle; Low back pain. Condition is Stable. Forms are Medication Reconciliation Form, Thank You Letter, Antibiotic Education, Prescription Opioid Use. Follow up: Private Physician; When: 1 - 2 days; Reason: Recheck today's complaints, Continuance of care, Re-evaluation by your physician. Follow up: Emergency Department; When: As needed; Reason: Worsening of condition. snw
--- NOTE | 2018-07-07 17:46 | ER ---
Nurse's Notes [facility] Name: Kieran Dumont Age: 58 yrs Sex: Female : 1960 Arrival Date: 07/07/2018 Time: 16:13 Bed 30 Private MD: Diagnosis: Fall (on) (from) other stairs and steps;Sprain of ankle;Low back pain Presentation: 07/07 16:15 Presenting complaint: Patient states: tripped going down a step last night, c/o left sv ankle pain and right lower back pain. Care prior to arrival: None. Mechanism of Injury: Fall down 1 steps. 16:15 Acuity: ELVIRA 4 sv 16:15 Method Of Arrival: Wheelchair sv 16:16 Transition of care: patient was not received from another setting of care. Onset of sv symptoms was July 06, 2018. 17:52 Risk Assessment: Do you want to hurt yourself or someone else? Patient reports no mg2 desire to harm self or others. Initial Sepsis Screen: Does the patient meet any 2 criteria? No. Patient's initial sepsis screen is negative. Does the patient have a suspected source of infection? No. Patient's initial sepsis screen is negative. Trauma Activation: Not Applicable Physician: ED Physician; Name: ; Notified At: ; Arrived At: Physician: General Surgeon; Name: ; Notified At: ; Arrived At: Physician: Radiology; Name: ; Notified At: ; Arrived At: Physician: Respiratory; Name: ; Notified At: ; Arrived At: Physician: Lab; Name: ; Notified At: ; Arrived At: Historical: - Allergies: 16:16 Bactrim; sv 16:16 Ciprofloxacin; sv 16:16 HYDROCODONE; sv 16:16 tramadol; sv - PMHx: 16:16 CVA; Depression; Hypertension; sv - PSHx: 16:16 Cholecystectomy; Hysterectomy; carpal tunnel; sv - Immunization history:: Flu vaccine status is unknown. - Social history:: Smoking status: unknown. - Ebola Screening: : No symptoms or risks identified at this time. Screenin:51 Abuse screen: Denies threats or abuse. Denies injuries from another. Nutritional mg2 screening: No deficits noted. Tuberculosis screening: No symptoms or risk factors identified. Fall Risk Fall in past 12 months (25 points). Assessment: 17:50 General: Appears in no apparent distress. comfortable, Behavior is calm, cooperative. mg2 Pain: Complains of pain in left leg and left lateral ankle Pain does not radiate. Pain currently is 3 out of 10 on a pain scale. Quality of pain is described as aching, Pain began gradually, 1 day ago. Is intermittent. Neuro: Level of Consciousness is awake, alert, obeys commands, Oriented to person, place, time, situation. Cardiovascular: Capillary refill < 3 seconds Patient's skin is warm and dry. Respiratory: Airway is patent Respiratory effort is even, unlabored, Respiratory pattern is regular, symmetrical. GI: No signs and/or symptoms were reported involving the gastrointestinal system. : No signs and/or symptoms were reported regarding the genitourinary system. EENT: No signs and/or symptoms were reported regarding the EENT system. Derm: Skin is intact, is healthy with good turgor, Skin is pink, warm \T\ dry. normal. Musculoskeletal: Circulation, motion, and sensation intact. Capillary refill < 3 seconds, Swelling present in left lateral ankle. Injury Description: swelling. Vital Signs: 16:16 BP 116 / 79; Pulse 79; Resp 18; Temp 98.9; Pulse Ox 97% ; Weight 109.77 kg; Height 5 sv ft. 6 in. (167.64 cm); 17:45 BP 120 / 78; Pulse 80; Resp 18; Pulse Ox 100% on R/A; Pain 2/10; mg2 16:16 Body Mass Index 39.06 (109.77 kg, 167.64 cm) sv ED Course: 16:13 Patient arrived in ED. tw3 16:16 Triage completed. sv 16:17 Arm band placed on. sv 16:43 X-ray completed. Patient tolerated procedure well. Patient moved back from radiology. az 16:44 Ankle Left 3 View XRAY In Process Unspecified. EDMS 16:46 Lumbar Spine (3 Views) XRAY In Process Unspecified. EDMS 17:14 Sally Chapman FNP-C [facility]. snw 17:14 Berry Dunn MD is Attending Physician. snw 17:16 Osman Green, MARLO is Primary Nurse. mg2 17:51 No provider procedures requiring assistance completed. Patient did not have IV access mg2 during this emergency room visit. Paresh wrap to left leg and left lateral ankle. 17:53 Patient has correct armband on for positive identification. mg2 Administered Medications: 17:35 Drug: TORadol 60 mg Route: IM; Site: right gluteus; mg2 17:48 Follow up: Response: No adverse reaction; Medication administered at discharge. mg2 Outcome: 17:46 Discharge ordered by . snw 17:52 Discharged to home via wheelchair. mg2 17:52 Condition: stable 17:52 Discharge instructions given to patient, Instructed on discharge instructions, follow up and referral plans. medication usage, Demonstrated understanding of instructions, follow-up care, medications, Prescriptions given X 1. 18:06 Patient left the ED. mg2 Signatures: Dispatcher [employer] EDYolis Chávez RN RN sv Sally Chapman, PHARMACY SERVICES DIRECTOR-C PHARMACY SERVICES DIRECTOR-Csnw Ebony Cardozo tw3 Osman Green RN RN mg2 Kaitlin Dumas
[2018-07-07 18:28] VITALS: TEMP 98.9
[2018-07-07 18:31] VITALS: BP 120/78; O2SAT 100
== END 2018-07-07 18:06 | disposition home or self-care (01) ==
LOC: ER 16:11
DX: S93.402A Sprain of unspecified ligament of left ankle, initial encounter (principal); W10.9XXA Fall (on) (from) unspecified stairs and steps, initial encounter; Y93.9 Activity, unspecified; Y92.9 Unspecified place or not applicable; Z88.1 Allergy status to other antibiotic agents; Z88.3 Allergy status to other anti-infective agents; Z88.5 Allergy status to narcotic agent; I10 Essential (primary) hypertension
CPT/HCPCS: 72100; 96372; 99284